=== PATIENT | female | born 1990 | race Hispanic/Latino ===

== ENCOUNTER 2021-08-05 11:13 | Outpatient (CLI) | payer MEDICAID ==
[2021-08-05] MEDS ORDERED: LACTATED RINGERS 1,000 ML IV ONE (11:42)
[2021-08-05 11:56] VITALS: BP 110/68
[2021-08-05 13:05] LABS: Bilirubin,Urine NEG (Negative); Blood,Urine NEG (Negative); Color,Urine Yellow (Yellow); Mucus,Urine FEW /HPF; Protein,Urine <15 mg/dL mg/dL (Negative); Urobilinogen,Urine < 2.0 mg/dL (<2.0)
--- NOTE | 2021-08-05 16:27 | Ultrasound Report ---
ULTRASOUND OBSTETRIC LIMITED ULTRASOUND BIOPHYSICAL PROFILE INDICATION / CLINICAL INFORMATION: well being. COMPARISON: None available. FINDINGS: BREATHING MOVEMENT = 2 GROSS BODY MOVEMENT = 2 TONE = 2 QUALITATIVE AMNIOTIC FLUID VOLUME = 2 TOTAL BIOPHYSICAL SCORE = 8/8 HEART RATE (beats per minute): 154 AMNIOTIC FLUID INDEX (cm) = 8.4 (normal = 7-24 cm) PRESENTATION: Cephalic. ADDITIONAL FINDINGS: None. IMPRESSION: 1. Biophysical Score = 8/8 Signer Name: Khoi Orellana MD Signed: 08/05/2021 4:23 PM Workstation Name: [id number]
--- NOTE | 2021-08-05 16:32 | Ultrasound Report ---
ULTRASOUND OBSTETRIC LIMITED ULTRASOUND BIOPHYSICAL PROFILE INDICATION / CLINICAL INFORMATION: well being. COMPARISON: None available. FINDINGS: BREATHING MOVEMENT = 2 GROSS BODY MOVEMENT = 2 TONE = 2 QUALITATIVE AMNIOTIC FLUID VOLUME = 2 TOTAL BIOPHYSICAL SCORE = 8/8 HEART RATE (beats per minute): 154 AMNIOTIC FLUID INDEX (cm) = 8.4 (normal = 7-24 cm) PRESENTATION: Cephalic. ADDITIONAL FINDINGS: None. IMPRESSION: 1. Biophysical Score = 8/8 Signer Name: Khoi Orellana MD Signed: 08/05/2021 4:28 PM Workstation Name: [id number]
== END 2021-08-05 14:07 | disposition home or self-care (01) ==
LOC: TRG 11:13 → APU 11:15 → TRG 14:07
PROVIDERS: ATTEND Obstetrics & Gynecology
DX: Z34.93 Encounter for supervision of normal pregnancy, unspecified, third trimester (principal); Z3A.37 37 weeks gestation of pregnancy
CPT/HCPCS: 59025; 76815; 76819; 81001

== ENCOUNTER 2021-08-12 11:38 | Outpatient (CLI) | payer MEDICAID ==
--- NOTE | 2021-08-12 13:08 | Ultrasound Report ---
US OB follow up, US OB BPP wo non-stress INDICATION / CLINICAL INFORMATION: efw - percentile please. COMPARISON: 06/05/2021 FINDINGS: Single live intrauterine . measurements as below: MEASUREMENTS: - Biparietal Diameter = 8.8 cm = 35 weeks 5 days - Head Circumference = 32.2 cm = 36 weeks 2 days - Abdominal Circumference = 34.5 cm = 38 weeks 2 days - Femur Length = 7.1 cm = 36 weeks 1 day - Estimated Weight (in grams, if calculated): 3169 - Estimated Percentile: 29% BREATHING MOVEMENT = 2 GROSS BODY MOVEMENT = 2 TONE = 2 QUALITATIVE AMNIOTIC FLUID VOLUME = 2 TOTAL BIOPHYSICAL SCORE = 8/8 AMNIOTIC FLUID INDEX (cm) = 9.1 PRESENTATION: Cephalic. HEART RATE (beats per minute): 145 IMPRESSION: 1. Single live intrauterine . No significant abnormality. 2. biophysical profile = 8 3. Estimated weight of 3169 g, with estimated percentile of 29%. Signer Name: Surendra Womack MD Signed: 08/12/2021 1:04 PM Workstation Name: [id number]
[2021-08-12 13:50] LABS: Hematocrit 34.9 % (30.3-42.9); Hemoglobin 11.6 gm/dl (10.1-14.3); Mean Corpuscular HGB Conc 33 % (30-34); Mean Corpuscular Volume 93 fl (79-97); Platelet Count 232 K/mm3 (140-440); Red Blood Count 3.76 M/mm3 (3.65-5.03); Red Cell Distribution Width 13.4 % (13.2-15.2)
[2021-08-12 13:50] LABS: Creatinine,Urine 125.9 mg/dL (0.1-20.0); Protein/Creatinine Ratio,Urine 0.22
[2021-08-12 14:12] LABS: Alanine Aminotransferase 9 units/L (7-56); Uric Acid 4.3 mg/dL (3.5-7.6)
[2021-08-12 15:08] VITALS: BP 107/68
[2021-08-12 16:15] LABS: Bilirubin,Urine NEG (Negative); Blood,Urine NEG (Negative); Color,Urine Yellow (Yellow); Mucus,Urine 3+ /HPF; Protein,Urine <15 mg/dL mg/dL (Negative)
== END 2021-08-12 15:44 | disposition home or self-care (01) ==
LOC: TRG 11:38 → APU 11:40 → TRG 15:44
PROVIDERS: ATTEND Obstetrics & Gynecology
DX: O13.3 Gestational [pregnancy-induced] hypertension without significant proteinuria, third trimester (principal); Z3A.38 38 weeks gestation of pregnancy
CPT/HCPCS: 36415; 59025; 76816; 76819; 81001; 82565; 82570; 83615; 84156; 84450; 84460; 84550; 85027